=== PATIENT | male | born 1955 | race Caucasian/White ===

== ENCOUNTER → 2017-05-01 | Outpatient (CLI) | payer BC ==
--- NOTE | 2017-05-01 15:24 | XR ---
EXAMINATION TYPE: XR chest 2V DATE OF EXAM: 05/01/2017 COMPARISON: NONE HISTORY: Persisting cough and shortness of breath TECHNIQUE: Frontal and lateral views of the chest are obtained. FINDINGS: There is no focal air space opacity, pleural effusion, or pneumothorax seen. Well-circums cribed subcentimeter densities are seen within the right lung base and peripheral left lower lobe. Th adry may relate to granulomas, however further characterization could be performed with nonemergent CT thorax. Granulomatous changes are seen at the cirilo. The cardiac silhouette size is within normal parker its. The osseous structures are intact with degenerative changes of the thoracic spine. IMPRESSION: 1. No acute cardiopulmonary process. 2. Dense well-circumscribed lower lobe nodules and calcified granulomas of the mediastinum. Findings may represent benign granulomatous disease, however further characterization with CT thorax could be performed.
== END | disposition home or self-care (01) ==
LOC: RADXRYALE 14:54
PROVIDERS: ATTEND Nurse Practitioner Family
DX: J84.10 Pulmonary fibrosis, unspecified (principal); R91.8 Other nonspecific abnormal finding of lung field; R06.02 Shortness of breath
CPT/HCPCS: 71020

== ENCOUNTER → 2017-05-05 | Outpatient (CLI) | payer BC ==
--- NOTE | 2017-05-05 08:14 | CT ---
EXAMINATION TYPE: CT angio chest DATE OF EXAM: 05/05/2017 COMPARISON: NONE HISTORY: Lung nodule and shortness of breath per order. Elevated d-dimer. CT DLP: 349.3 mGycm. Automated Exposure Control for Dose Reduction was Utilized. CONTRAST: CTA scan of the thorax is performed with IV Contrast, patient injected with 100 mL of Omnipaque 350, pulmonary embolism protocol. MIP Images are created on CT scanner and reviewed. FINDINGS: LUNGS: There is some left basilar pleural thickening with adjacent focal limited consolidation or ate lectasis in the left lung base along the diaphragm. There is additional peripheral linear atelectasis or scarring in the lingula superior to this. There is calcified 6 mm left lower lobe nodule on axial image 103. Mild emphysematous change in the upper lungs is present. There is no suspicious greater t russ 6 mm noncalcified parenchymal nodule or mass. No pleural effusion or pneumothorax is seen bilater ally. MEDIASTINUM: There is satisfactory enhancement of the pulmonary artery and its branches, there is no CT evidence for pulmonary embolism. There are no greater than 1 cm hilar or mediastinal lymph nodes. There are slightly prominent but subcentimeter noncalcified paratracheal and subcarinal lymph nodes. There are calcified left hilar lymph nodes seen. No cardiomegaly or pericardial effusion is seen. Co ronary artery calcification is present which is noted marker for coronary artery disease. There is mi ld calcified plaque in the aorta. Ascending aorta measures up to 3.5 cm in diameter. Some reflux of c ontrast into IVC and hepatic veins suggests degree of right heart failure. OTHER: There are few scattered subcentimeter hypodense lesions throughout the liver too small to furt her characterize but presumed benign. Largest lesion measures 1.1 cm laterally on axial image 159. Ch olecystectomy clips are present. There is 4.0 cm simple appearing cyst posteriorly upper to mid pole level left kidney. Small degree of bilateral gynecomastia is present. There is moderate multilevel sp urring in the thoracic spine. IMPRESSION: 1. No CT evidence for pulmonary embolism. 2. Focal atelectasis or Limited consolidation in the left lung base abutting diaphragm. Background of mild chronic emphysematous change noted. Suspect degree of underlying right heart failure.
== END | disposition home or self-care (01) ==
LOC: RADCTMAIN 06:57
PROVIDERS: ATTEND Family Medicine
DX: J43.9 Emphysema, unspecified (principal); R91.1 Solitary pulmonary nodule; R05 Cough; R06.02 Shortness of breath; R79.89 Other specified abnormal findings of blood chemistry
CPT/HCPCS: 71275; Q9967

== ENCOUNTER → 2017-11-13 | Outpatient (CLI) | payer BC ==
--- NOTE | 2017-11-13 12:58 | CT ---
EXAMINATION TYPE: CT chest w con DATE OF EXAM: 11/13/2017 COMPARISON: CTA chest May 05, 2017 HISTORY: Solitary nodule of lung. CT DLP: 401.9 mGycm. Automated Exposure Control for Dose Reduction was Utilized. TECHNIQUE: CT scan of the thorax is performed following with IV Contrast, patient injected with 100 mL of Omnipaque 300. FINDINGS: LUNGS: There are 2 calcified nodules in the left lower lobe redemonstrated with largest measuring 8 m m on long axis in the lung base. There is bibasilar linear scarring and/or atelectasis. The lungs are grossly clear, there is no concerning noncalcified parenchymal mass or nodule identified. There is i nterval resolution of the anterior left basilar consolidation. There is no pleural effusion or pneum othorax seen. The tracheobronchial tree is patent. MEDIASTINUM: There are no greater than 1 cm noncalcified hilar or mediastinal lymph nodes. There are calcified subcentimeter left hilar lymph nodes. No cardiomegaly or pericardial effusion is seen. Th ere is mild to moderate plaque in the visualized aorta redemonstrated. OTHER: Cholecystectomy clips are redemonstrated.. A few simple appearing thin-walled cysts in visuali zed portion of liver. There is stable 3.1 cm partially exophytic hypodense lesion posteriorly upper p ole level left kidney with Hounsfield units averaging 26 could reflect proteinaceous cyst. There is m ultilevel moderate to severe spurring in the visualized thoracic spine. IMPRESSION: Evidence of old granulomatous disease. No suspicious acute pulmonary process currently. N o worrisome mass or adenopathy identified.
== END | disposition home or self-care (01) ==
LOC: RADCTMAIN 11:46
PROVIDERS: ATTEND Internal Medicine Critical Care Medicine
DX: R91.1 Solitary pulmonary nodule (principal)
CPT/HCPCS: 71260; Q9967

== ENCOUNTER → 2020-06-10 | Outpatient (CLI) | payer MEDICARE ==
[2020-06-10 09:52] LABS: Basophils # (A) 0.1 k/uL (0-0.2); Basophils % (A) 1 %; Eosinophils # (A) 0.1 k/uL (0-0.7); Eosinophils % (A) 2 %; HCT 45.6 % (39.0-53.0); HGB 15.5 gm/dL (13.0-17.5); Lymphocytes # (A) 1.2 k/uL (1.0-4.8); Lymphocytes % (A) 24 %; MCH 29.7 pg (25.0-35.0); MCHC 33.9 g/dL (31.0-37.0); MCV 87.8 fL (80.0-100.0); Mean Platelet Volume 6.7; Monocytes # (A) 0.3 k/uL (0-1.0); Monocytes % (A) 6 %; Neutrophils # (A) 3.4 k/uL (1.3-7.7); Neutrophils % (A) 65 %; Platelet Count 210 k/uL (150-450); RBC 5.19 m/uL (4.30-5.90); RDW 12.3 % (11.5-15.5); WBC 5.2 k/uL (3.8-10.6)
[2020-06-10 10:08] LABS: Albumin 4.4 g/dL (3.5-5.0); Calcium 9.5 mg/dL (8.4-10.2); Phosphorus 3.5 mg/dL (2.5-4.5); Total Bilirubin 1.7 mg/dL (0.2-1.3); Total Protein 7.3 g/dL (6.3-8.2)
[2020-06-10 10:24] LABS: Appearance,Urine Clear (Clear); Bilirubin,Urine Negative (Negative); Blood,Urine Negative (Negative); Color,Urine Colorless; Glucose,Urine (UA) Negative (Negative); Ketones,Urine Negative (Negative); Leukocyte Esterase,Urine Negative (Negative); Nitrite,Urine Negative (Negative); PH, Urine 6.5 (5.0-8.0); Protein,Urine Negative (Negative); Specific Gravity,Urine 1.002 (1.001-1.035); Urobilinogen,Urine <2.0 mg/dL (<2.0)
--- NOTE | 2020-06-10 11:32 | US ---
EXAMINATION TYPE: US kidneys/renal and bladder DATE OF EXAM: 06/10/2020 COMPARISON: CT CLINICAL HISTORY: N18.3 Chronic renal failure stage 3. Chronic renal failure EXAM MEASUREMENTS: Right Kidney: 10.7 x 5.1 x 5.8 cm Left Kidney: 10.5 x 5.7 x 5.3 cm Right Kidney: Appeared wnl Left Kidney: Hypoechoic lesion with shadowing upper/lateral= 2.7 x 2.2 x 2.3 cm/ Previous CT noted a cyst on left kidney. Recommend repeat CT abdomen with contrast to reevaluate superior cortical regio n Bladder: wnl Bilateral Jets seen: Yes IMPRESSION: 1. Hypoechoic area superior pole left renal cortex does not have good through transmission. This is n ot a simple cyst. Solid lesion potentially could be within the differential. CT abdomen with contras t is recommended to reevaluate left renal lesion
== END | disposition home or self-care (01) ==
LOC: RADUSWWP 08:46
PROVIDERS: ATTEND Nurse Practitioner Family
DX: N18.3 Chronic kidney disease, stage 3 (moderate) (principal)
CPT/HCPCS: 36415; 76770; 80053; 81003; 84100; 85025

== ENCOUNTER → 2020-06-29 | Outpatient (CLI) | payer MEDICARE ==
--- NOTE | 2020-06-30 07:02 | CT ---
EXAMINATION TYPE: CT abdomen w con DATE OF EXAM: 06/29/2020 COMPARISON: Renal ultrasound June 10, 2020. CT chest November 13, 2017 HISTORY: Renal lesion. CT DLP: 663.2 mGycm, Automated Exposure Control for Dose Reduction was Utilized. CONTRAST: CT scan of the abdomen is performed without oral and with IV Contrast, patient injected with 80ml mL of Isovue 300. FINDINGS: LUNG BASES: Stable calcified 7 mm left basilar nodule or granuloma axial image 13. LIVER/GB: Cholecystectomy clips are redemonstrated. Liver is diffusely low dense relative to spleen s uggesting diffuse fatty infiltration. Stable 1.6 cm thin-walled cyst right hepatic periphery axial im age 24. PANCREAS: No significant abnormality is seen. SPLEEN: No significant abnormality is seen. ADRENALS: No significant abnormality is seen. KIDNEYS: Symmetric cortical medullary uptake and excretion without hydronephrosis seen bilaterally. C orresponding to ultrasound there is a 2.1 cm partially exophytic low dense lesion posteriorly upper p ole level, this was present in 2018 and is actually slightly smaller in size. Suspect proteinaceous c yst. BOWEL: Few scattered colonic diverticula. No suspicious bowel dilatation. LYMPH NODES: No greater than 1cm abdominal lymph nodes are appreciated. OSSEOUS STRUCTURES: Multilevel moderate spurring of the thoracolumbar spine. Multilevel [id number] ate disc space narrowing and vacuum disc phenomenon in the lumbar spine. OTHER: Moderate calcified plaque abdominal aorta extends into branch vessels. IMPRESSION: Lesion of concern on ultrasound is diminished in size from 2018 CT, findings consistent w ith a proteinaceous cyst measuring 2 to 3 cm in size.
== END | disposition home or self-care (01) ==
LOC: RADCTMAIN 17:44
PROVIDERS: ATTEND Family Medicine
DX: N28.1 Cyst of kidney, acquired (principal); N28.9 Disorder of kidney and ureter, unspecified
CPT/HCPCS: 82565; 84520; 74160; 36415; Q9967

== ENCOUNTER 2021-08-18 08:33 | Day surgery (SDC) | payer MEDICARE ==
[2021-08-17 08:51] VITALS: BMI 28.3
[~2021-08-18 08:33] MED LIST: LACTATED RINGERS 1,000 ML IV SCH; LIDOCAINE 1% (10MG/ML) FOR IV START INTRADERMA PRN
[2021-08-18 09:10] VITALS: TEMP 98.2
[2021-08-18] MEDS ORDERED: PROPOFOL 10 MG/ML 20 ML VIAL IV ONE (09:49)
[2021-08-18] MEDS ORDERED: GLYCOPYRROLATE 0.2 MG/ML 2 ML VIAL ONE (09:49)
--- NOTE | 2021-08-18 10:13 | P.PCN ---
Date of Procedure: 08/18/21 Procedure(s) Performed: BRIEF HISTORY: Patient is a 65-year-old pleasant male scheduled for an elective colonoscopy as a part of evaluation of Hemoccult-positive stool. PROCEDURE PERFORMED: Colonoscopy. PREOPERATIVE DIAGNOSIS: Hemoccult-positive stool. IV sedation per Anesthesia. PROCEDURE: After informed consent was obtained, the patient, was brought into the endoscopy unit. IV sedation was administered by Anesthesia under continuous monitoring. Digital rectal examination was normal. Initially the Olympus CF-160 flexible video colonoscope was then inserted in the rectum, gradually advanced into the cecum without any difficulty. Careful examination was performed as the scope was gradually being withdrawn. Ileocecal valve and the appendiceal orifice were visualized and appeared normal. Prep was excellent. Mucosa of the cecum, ascending colon, transverse colon, descending colon, sigmoid colon, and rectum appeared normal. Retroflexion was performed in the rectum and small internal hemorrhoids were seen. Scattered sigmoid diverticulosis. The patient tolerated the procedure well. IMPRESSION: Normal-appearing colon from rectum to cecum with no evidence of colorectal neoplasia . Scattered sigmoid diverticulosis Small internal hemorrhoids REC OMMENDATIONS: Findings of this examination were discussed with the patient as well as his family. He was advised to have a repeat screening colonoscopy in 10 years.
[2021-08-18 10:17] VITALS: RESP 16
[2021-08-18 10:32] VITALS: BP 116/73; PULSE 58
== END 2021-08-18 10:48 | disposition home or self-care (01) ==
LOC: ORWHC2ENDO 08:33
PROVIDERS: ATTEND Internal Medicine Gastroenterology
DX: R19.5 Other fecal abnormalities (principal)
CPT/HCPCS: 45378; J2704

== ENCOUNTER → 2022-07-19 | Outpatient (CLI) | payer MEDICARE ==
--- NOTE | 2022-07-19 10:23 | US ---
EXAMINATION TYPE: US abdomen limited DATE OF EXAM: 07/19/2022 COMPARISON: CT abdomen 06/29/2020, renal ultrasound 06/10/2020. CLINICAL HISTORY: R17 UNSPECIFIED JAUNDICE. Elevated labs, pt has no other complaints at this time, G B removed TECHNIQUE: Multiple sonographic images of the right upper quadrant are obtained. FINDINGS: EXAM MEASUREMENTS: Liver Length: 18.2 cm CBD: 0.9 cm Right Kidney: 10.2 x 5.0 x 5.4 cm Pancreas: 2mm duct visualized which is within normal limits, tail obscured by overlying bowel gas, o therwise appeared wnl Liver: Simple cyst right lateral lobe= 1.7 x 1.5 x 1.8 cm. Noncirrhotic morphology. No intrahepatic b iliary duct dilatation. Gallbladder: Surgically absent CBD: wnl for post jaswinder Right Kidney: wnl . No hydronephrosis, shadowing calculi, or solid mass. IMPRESSION: 1. No acute process. 2. Hepatic cyst. 3. Post cholecystectomy.
== END | disposition home or self-care (01) ==
LOC: RADUSWWP 09:13
PROVIDERS: ATTEND Family Medicine
DX: K76.89 Other specified diseases of liver (principal); Z90.49 Acquired absence of other specified parts of digestive tract
CPT/HCPCS: 76705

== ENCOUNTER → 2023-01-18 | Outpatient (CLI) | payer MEDICARE | LOC: CPPFTMAIN 12:57 | PROVIDERS: ATTEND Family Medicine | DX: R06.02 Shortness of breath (principal) | CPT/HCPCS: 94060; 94726; 94729 ==

== ENCOUNTER → 2023-01-18 | Outpatient (CLI) | payer MEDICARE | END | disposition home or self-care (01) | LOC: LABWHC1 12:43 | PROVIDERS: ATTEND Nurse Practitioner Acute Care | DX: E78.5 Hyperlipidemia, unspecified (principal); R06.00 Dyspnea, unspecified | CPT/HCPCS: 36415; 83880 ==

== ENCOUNTER → 2024-08-02 | Outpatient (CLI) | payer MEDICARE ==
--- NOTE | 2024-08-03 20:14 | US ---
EXAMINATION TYPE: US abdomen limited DATE OF EXAM: 08/02/2024 COMPARISON: NONE CLINICAL INDICATION: Male, 68 years old with history of R17 JAUNDICE; Abnormal labs, HX HTN; patient denies any other signs, symptoms, or relevant history TECHNIQUE: Grayscale and color Doppler imaging of the right upper quadrant was performed. FINDINGS: EXAM MEASUREMENTS: Liver Length: 19.7 cm Gallbladder Wall: Surgically absent cm CBD: 0.6 cm Right Kidney: 10.4 x 4.8 x 5.7 cm LINER REPLACER NOTES: Pancreas: wnl Liver: Anechoic areas redemonstrated within the liver Gallbladder: Surgically absent Evidence for sonographic Packer's sign: No CBD: ? Dilated Right Kidney: wnl IMPRESSION: Mild age-related ectasia of the common bile duct. Small hepatic cysts redemonstrated. Otherwise unrem arkable study. [facility], , 08/03/2024 8:11 PM
== END | disposition home or self-care (01) ==
LOC: RADUSWWP 07:37
PROVIDERS: ATTEND Family Medicine
DX: K76.89 Other specified diseases of liver (principal); K83.8 Other specified diseases of biliary tract; Z86.79 Personal history of other diseases of the circulatory system
CPT/HCPCS: 76705